=== PATIENT | female | born 1950 | race Caucasian/White ===

== ENCOUNTER 2021-04-29 17:39 | Emergency (ER) | payer OTHER ==
[~2021-04-29] VITALS: Ht 160 cm; Wt 59.0 kg
[2021-04-29] MEDS ORDERED: APRISO0.375 GM PO (17:55)
[2021-04-29] MEDS ORDERED: TENORMIN25 MG PO (17:56)
[2021-04-29] MEDS ORDERED: COZAAR100 MG PO (17:56)
[2021-04-29] MEDS ORDERED: LEVSIN0.125 MG PO (22:35)
[2021-04-29] MEDS ORDERED: MEDROLPACK PO (22:35)
[2021-04-29] MEDS ORDERED: PROBIOTIC1 EAC2 PO (22:35)
[2021-04-29] MEDS ORDERED: FLAGYL500MG PO (22:35)
[2021-04-29] MEDS ORDERED: PROTONIX40 MG PO (22:35)
== END 2021-04-29 23:01 | disposition home or self-care (01) ==
LOC: ER 17:39
DX: K52.89 Other specified noninfective gastroenteritis and colitis (principal); R10.84 Generalized abdominal pain

== ENCOUNTER 2021-05-17 15:36 | Emergency (ER) | payer OTHER ==
[~2021-05-17] VITALS: Ht 160 cm; Wt 59.0 kg
[~2021-05-17 15:36] MED LIST: APRISO0.375 GM PO; COZAAR100 MG PO; FLAGYL500MG PO; LEVSIN0.125 MG PO; MEDROLPACK PO; PROBIOTIC1 EAC2 PO; PROTONIX40 MG PO; TENORMIN25 MG PO
== END 2021-05-17 22:54 | disposition home or self-care (01) ==
LOC: ER 15:36
DX: K52.89 Other specified noninfective gastroenteritis and colitis (principal)